=== PATIENT | female | born 1955 | race Two or more races ===

== ENCOUNTER 2018-09-17 09:30 | Inpatient (IN) | payer OTHER ==
[~2018-09-17] VITALS: Ht 165.1 cm; Wt 60.3 kg
[2018-09-23] MEDS ORDERED: [UNRECOGNIZED DRUG - OTHER] PO (09:11)
[2018-09-23] MEDS ORDERED: FIBERCON625 MG PO (09:11)
[2018-09-23] MEDS ORDERED: HYOSCYAMINE0.125 MG PO (09:12)
[2018-09-23] MEDS ORDERED: CIPRO500 MG/5 M PO (09:12)
[2018-09-25] MEDS ORDERED: PROTEINEX1 TA1 PO (10:08)
[2018-09-30] MEDS ORDERED: HYOSCYAMINE0.125 M1 SL (11:46)
[2018-09-30] MEDS ORDERED: OXYC1TAB9 PO (11:47)
== END 2018-09-30 13:18 | disposition home or self-care (01) | DRG 330 ==
LOC: O/R 09-24 07:20 → SURH 09-24 07:20
PROVIDERS: ADMIT Surgery
PROC: 07TB4ZZ Resection of Mesenteric Lymphatic, Percutaneous Endoscopic Approach (ICD-10-PCS; 2018-09-24)
PROC: 0DTH4ZZ Resection of Cecum, Percutaneous Endoscopic Approach (ICD-10-PCS; principal; 2018-09-24 16:00)
PROC: 30233N1 Transfusion of Nonautologous Red Blood Cells into Peripheral Vein, Percutaneous Approach (ICD-10-PCS; 2018-09-29)
DX: C18.0 Malignant neoplasm of cecum (principal); C78.7 Secondary malignant neoplasm of liver and intrahepatic bile duct; R59.0 Localized enlarged lymph nodes; D50.8 Other iron deficiency anemias; E11.9 Type 2 diabetes mellitus without complications; I10 Essential (primary) hypertension